=== PATIENT | female | born 1960 | race Two or more races ===

== ENCOUNTER 2021-06-26 23:50 | Inpatient (IN) | payer MEDICARE, OTHER ==
[~2021-06-26] VITALS: Ht 167.6 cm; Wt 72.6 kg
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
[2021-06-27 00:22] LABS: BASOPHILS # (AUTO) 0.1 K/uL (0.0-0.2); BASOPHILS % (AUTO) 0.9 % (0.0-2.0); EOSINOPHILS % (AUTO) 3.3 % (0.0-6.0); HEMATOCRIT 41 % (33-45); HEMOGLOBIN 14.2 g/dL (11.5-14.8); LYMPHOCYTES # (AUTO) 1.9 K/uL (0.8-4.8); LYMPHOCYTES % (AUTO) 21.2 % (20.0-44.0); MEAN CORPUSCULAR HGB CONC 34 g/dl (31.0-36.0); MEAN CORPUSCULAR VOLUME 88 fL (82-100); MONOCYTES % (AUTO) 11.1 % (2.0-12.0); NEUTROPHILS # (AUTO) 5.6 K/uL (1.8-8.9); NEUTROPHILS % (AUTO) 63.5 % (43.0-81.0); PLATELET COUNT (AUTO) 353 K/uL (150-450); RED BLOOD CELL COUNT(AUTO) 4.67 MIL/uL (4.0-5.2); WHITE BLOOD COUNT (AUTO) 8.8 K/uL (4.3-11.0)
[2021-06-27] MEDS ORDERED: LORAZEPAM INJ 2 MG/ML VIAL ONE (00:27)
[2021-06-27] MEDS ORDERED: LORAZEPAM INJ 2 MG/ML VIAL IV ONE (00:30)
[2021-06-27 00:35] LABS: ALANINE AMINOTRANSFERASE 28 U/L (12-78); ALCOHOL, BLOOD < 3 mg/dL (0-0); ALKALINE PHOSPHATASE 124 U/L (46-116); ASPARTATE AMINOTRANSFERASE 24 U/L (15-37); BILIRUBIN,DIRECT 0.1 mg/dL (0.0-0.2); BILIRUBIN,TOTAL 0.4 mg/dL (0.2-1.0); CALCIUM, SERUM 9.6 mg/dL (8.5-10.1); CARBON DIOXIDE 25 mmol/L (21-32); CHLORIDE 102 mmol/L (98-107); CREATININE 2.3 mg/dL (0.6-1.3); GLUCOSE 113 mg/dL (74-106); SODIUM SERUM 140 mmol/L (136-145); TOTAL PROTEIN, SERUM 7.8 g/dL (6.4-8.2); UREA NITROGEN, BLOOD 28 mg/dL (7-18)
[2021-06-27 00:38] LABS: ACETAMINOPHEN 0 ug/ml (10-30); POTASSIUM 2.6 mmol/L (3.5-5.1)
--- NOTE | 2021-06-27 00:39 | NUR ---
BROUGHT TO CT
[2021-06-27 00:56] LABS: SERUM AMMONIA 20 umol/L (11-32)
[2021-06-27 00:58] LABS: THYROID STIMULATING HORMONE 0.426 uIU/mL (0.358-3.74)
[2021-06-27] MEDS ORDERED: POTASSIUM CHLORIDE 20 MEQ TAB.PRT.SR PO ONE ×2 (01:00→01:14)
--- NOTE | 2021-06-27 01:05 | NUR ---
URINE COLLECTED AND SENT TO LAB
[2021-06-27 01:18] LABS: BILIRUBIN,URINE SMALL (NEGATIVE); COLOR,URINE YELLOW (YELLOW); LEUKOCYTE ESTERASE ,URINE Negative (NEGATIVE); NITRITE, URINE Negative (NEGATIVE); PH,URINE 5.5 (5.0-8.0); PROTEIN,URINE Negative (NEGATIVE); UGLUCOSE Negative (NEGATIVE); UROBILINOGEN,URINE 0.2 EU/dL (0.2)
[2021-06-27] MEDS ORDERED: IV NS 0.9% 1,000 ML IV ONE ×2 (03:00)
[2021-06-27 05:11] LABS: CREATININE 1.5 mg/dL (0.6-1.3)
[2021-06-27 05:28] LABS: CALCIUM, SERUM 8.4 mg/dL (8.5-10.1)
--- NOTE | 2021-06-27 06:02 | NUR ---
CALLED [facility] FOR EVALUATION OF BED 12. NO ANSWER, VOICEMAIL WAS LEFT FOR HER.
--- NOTE | 2021-06-27 09:13 | NUR ---
MOVE SHEET SUBMITTED.
[2021-06-27] MEDS ORDERED: HYDR25TA4 PO (09:45)
[2021-06-27] MEDS ORDERED: CHOL100062 PO (09:45)
[2021-06-27] MEDS ORDERED: AMLO-213 PO (09:45)
[2021-06-27] MEDS ORDERED: HYDR-3980 PO (09:45)
--- NOTE | 2021-06-27 09:56 | NUR ---
REPORT GIVEN TO SONIA. PT AWAITING TRANSFER TO FLOOR.
--- NOTE | 2021-06-27 10:16 | NUR ---
wheeled patient via gurney accompanied by EMT in no distress. RN assigned to patient at bedside to assume care.
[2021-06-27] MEDS ORDERED: LORAZEPAM 0.5 MG TABLET PO PRN (10:30)
[2021-06-27] MEDS ORDERED: MAG HYDROX/AL HYDROX/SIMETH 30 ML UDC PO PRN (10:30)
[2021-06-27] MEDS ORDERED: BLOOD SUGAR DIAGNOSTIC 1 EACH STRIP IN ONE ×2 (10:30→11:00)
[2021-06-27] MEDS ORDERED: TEMAZEPAM 7.5 MG CAPSULE PO PRN (10:30)
[2021-06-27] MEDS ORDERED: MAGNESIUM HYDROXIDE 30 ML UDC PO PRN ×2 (10:30→11:00)
[2021-06-27] MEDS ORDERED: ACETAMINOPHEN 325 MG TABLET PO PRN ×2 (10:30→11:00)
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
[2021-06-27] MEDS ORDERED: OLANZAPINE 10 MG VIAL IM STA (10:53)
[2021-06-27] MEDS ORDERED: LORAZEPAM INJ 2 MG/ML VIAL IM STA (10:53)
--- NOTE | 2021-06-27 11:22 | NUR ---
RN-CO: ADMITTED PATIENT,FROM [facility] ED. SHE IS UNCOOPERATIVE, DISRUPTIVE IN THE UNIT, YELLING AT THE STAFF AND REFUSED TO SURRENDER HER CONTRABAND. THEN SHE INSISTED TO GET THE WIRELESS PHONE TO CALL 911. SHE WAS CALLING STAFF NAMES AND ARGUMENTATIVE. PT IS NON REDIRECTABLE, REFUSED ATIVAN PO. PATIENT WAS POSTURING TO ONE OF THE STAFF. CALLED DR OVALLE AND ORDERED ATIVAN 1 MG IM AND ZYPREXA 5 MG IM STAT, NOTED AND CARRIED OUT. WE WILL CONTINUE TO MONITOR.
--- NOTE | 2021-06-27 14:16 | NUR ---
RNMaria LuisaCO: PT WAS ADMITTED BY DR OVALLE. H&P DICTATED.
[2021-06-27] MEDS: QUETIAPINE FUMARATE 25 MG TABLET PO SCH ×2 (14:30→16:49)
[2021-06-27] MEDS: DIVALPROEX SODIUM 125 MG CAP.SPRINK PO SCH ×2 (14:30→16:49)
--- NOTE | 2021-06-27 14:34 | NUR ---
RN-CO: PT IS ASLEEP RESPIRATION EVEN AND UNLABORED.
[2021-06-27 16:00] VITALS: BP 106/66
[2021-06-27] MEDS: AMLODIPINE BESYLATE 10 MG TABLET PO SCH (18:00)
[2021-06-27 20:00] VITALS: BP 95/59
[2021-06-27 23:00] VITALS: BP 115/69
[2021-06-28] MEDS: clonazePAM 0.5 MG TABLET PO PRN (04:03)
--- NOTE | 2021-06-28 04:06 | NUR ---
RN NOTES: ANXIETY PT. C/O FEELING ANXIOUS ,PARANOID , CRYING , KLONOPIN 0.5 MG PO PRN GIVEN PER PT. REQUEST, WILL CONTINUE TO MONITOR.
[2021-06-28 08:52] LABS: ALBUMIN 3.1 g/dL (3.4-5.0); BILIRUBIN,TOTAL 0.5 mg/dL (0.2-1.0); CALCIUM, SERUM 8.8 mg/dL (8.5-10.1); CREATININE 0.9 mg/dL (0.6-1.3); TOTAL PROTEIN, SERUM 6.6 g/dL (6.4-8.2)
[2021-06-28 08:57] LABS: CHOLESTEROL 175 mg/dL (<200); HDL CHOLESTEROL 51 mg/dL (40-60); LDL 95 mg/dL (0-99); TRIGLYCERIDES 70 mg/dL (30-150)
[2021-06-28] MEDS: CHOLECALCIFEROL 1,000 UNIT TABLET (VIT D3) PO SCH (09:00)
[2021-06-28] MEDS: QUETIAPINE FUMARATE 25 MG TABLET PO SCH ×2 (09:00→17:34)
[2021-06-28] MEDS: DIVALPROEX SODIUM 125 MG CAP.SPRINK PO SCH ×3 (09:00→17:35)
[2021-06-28] MEDS: HYDROCHLOROTHIAZIDE 25 MG TABLET PO SCH (09:00)
[2021-06-28 09:07] LABS: POTASSIUM 2.7 mmol/L (3.5-5.1)
[2021-06-28 09:14] VITALS: BP 105/73
--- NOTE | 2021-06-28 09:15 | NUR ---
RECEIVED CRITICAL LAB RESULTS. K 2.7. DR OMER CALLED. AWAITING CALL BACK.
--- NOTE | 2021-06-28 09:35 | NUR ---
DR OMER CALLED AGAIN REGARDING PT'S CRITICAL LAB.
--- NOTE | 2021-06-28 09:55 | NUR ---
DR OMER ORDERED K DUR 80MEQ STAT. BMP@ 1500 AND BMP FOR 06/29/2021 AM. ORDERS PLACED.
[2021-06-28] MEDS: POTASSIUM CHLORIDE 20 MEQ TAB.PRT.SR PO SCH ×4 (10:22→21:02)
[2021-06-28] MEDS: HYDROCODONE/APAP 10/325MG TABLET PO PRN (11:15)
--- NOTE | 2021-06-28 11:17 | NUR ---
RN NOTE: PT COMPLAINS OF BACK PAIN. NORCO PRN GIVEN FOR PAIN. WILL CONTINUE TO MONITOR
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
--- NOTE | 2021-06-28 16:06 | NUR ---
Family contact: OLIMPIA contacted pts son Jean Carlos ([phone]) and informed him that pt will be discharged home and there is no discharge date yet. Jean Carlos inquired if pt can go to a higher level of care. OLIMPIA informed Jean Carlos that the SW will encourage pt to go to a SNF but she has the right to refuse and go home. Jean Carlos confirmed this information. OLIMPIA will follow up with Jean Carlos about pts treatment.
--- NOTE | 2021-06-28 16:09 | NUR ---
Initial discharge plan: Pt is currently living in an apartment with her son [place] on [address] [place] [address] [address] [place], [place] [address]; [phone]. Per pt, she would like to return home upon discharge. SW will work with the pt and the MD regarding appropriate discharge planning. SW will form a safe and proper discharge.
[2021-06-28 16:11] LABS: CALCIUM, SERUM 9.1 mg/dL (8.5-10.1); POTASSIUM 3.1 mmol/L (3.5-5.1)
[2021-06-28 16:36] VITALS: BP 128/71
--- NOTE | 2021-06-28 16:37 | NUR ---
DR OMER INFORMED OF K LAB RESULTS OF 3.1. NEW ORDER OF 80 MEQ K DUR AT THIS TIME. ALSO, DR OMER WAS INFORMED OF PT'S COMPLAINS OF PAIN. STATED TO TELL PT THAT HE WAS INFORMED. NO NEW ORDERS.
[2021-06-28] MEDS ORDERED: POTASSIUM CHLORIDE 20 MEQ TAB.PRT.SR PO SCH (17:07)
[2021-06-28] MEDS: AMLODIPINE BESYLATE 10 MG TABLET PO SCH (17:35)
[2021-06-28 20:40] VITALS: BP 104/54
[2021-06-29 07:13] LABS: CALCIUM, SERUM 9.2 mg/dL (8.5-10.1); CREATININE 0.8 mg/dL (0.6-1.3); POTASSIUM 4.1 mmol/L (3.5-5.1)
[2021-06-29 08:00] VITALS: BP 110/77
[2021-06-29] MEDS: HYDROCHLOROTHIAZIDE 25 MG TABLET PO SCH (08:16)
[2021-06-29] MEDS: CHOLECALCIFEROL 1,000 UNIT TABLET (VIT D3) PO SCH (08:16)
[2021-06-29] MEDS: DIVALPROEX SODIUM 125 MG CAP.SPRINK PO SCH ×3 (08:16→16:41)
[2021-06-29] MEDS: QUETIAPINE FUMARATE 25 MG TABLET PO SCH ×2 (08:16→16:41)
[2021-06-29 16:00] VITALS: BP 119/82
[2021-06-29] MEDS: AMLODIPINE BESYLATE 10 MG TABLET PO SCH (17:02)
[2021-06-29] MEDS: HYDROCODONE/APAP 10/325MG TABLET PO PRN (17:05)
--- NOTE | 2021-06-29 17:06 | NUR ---
RN-CO: NORCO 1 TAB PO GIVEN FOR C/O 07/11 BACK PAIN.
[2021-06-29 20:00] VITALS: BP 117/92
[2021-06-29] MEDS: TEMAZEPAM 7.5 MG CAPSULE PO PRN (21:04)
[2021-06-30] MEDS: HYDROCODONE/APAP 10/325MG TABLET PO PRN (06:40)
[2021-06-30 08:00] VITALS: BP 119/82
[2021-06-30] MEDS: CHOLECALCIFEROL 1,000 UNIT TABLET (VIT D3) PO SCH (08:25)
[2021-06-30] MEDS: QUETIAPINE FUMARATE 25 MG TABLET PO SCH ×2 (08:25→17:17)
[2021-06-30] MEDS: HYDROCHLOROTHIAZIDE 25 MG TABLET PO SCH (08:25)
[2021-06-30] MEDS: DIVALPROEX SODIUM 125 MG CAP.SPRINK PO SCH ×3 (08:25→17:17)
[2021-06-30 17:15] VITALS: BP 136/89
[2021-06-30] MEDS: AMLODIPINE BESYLATE 10 MG TABLET PO SCH (17:17)
[2021-06-30] MEDS: clonazePAM 0.5 MG TABLET PO PRN (19:37)
--- NOTE | 2021-06-30 19:39 | NUR ---
RN NOTES: ANXIETY PT. C/O FEELING ANXIOUS ,PARANOID , CRYING ,RESTLESS KLONOPIN 0.5 MG PO PRN GIVEN PER PT. REQUEST, WILL CONTINUE TO MONITOR.
[2021-06-30 20:02] VITALS: BP 119/77
[2021-07-01 08:00] VITALS: BP 111/75
[2021-07-01] MEDS: QUETIAPINE FUMARATE 25 MG TABLET PO SCH ×2 (08:03→17:12)
[2021-07-01] MEDS: DIVALPROEX SODIUM 125 MG CAP.SPRINK PO SCH ×3 (08:03→17:12)
[2021-07-01] MEDS: CHOLECALCIFEROL 1,000 UNIT TABLET (VIT D3) PO SCH (08:03)
[2021-07-01] MEDS: HYDROCODONE/APAP 10/325MG TABLET PO PRN ×2 (08:04→15:06)
[2021-07-01] MEDS: HYDROCHLOROTHIAZIDE 25 MG TABLET PO SCH (08:04)
[2021-07-01 16:12] VITALS: BP 107/74
[2021-07-01 17:00] VITALS: BP 112/72
[2021-07-01] MEDS: AMLODIPINE BESYLATE 10 MG TABLET PO SCH (17:15)
[2021-07-01 20:00] VITALS: BP 100/66
[2021-07-02] MEDS: TEMAZEPAM 7.5 MG CAPSULE PO PRN ×2 (01:23→21:50)
[2021-07-02 08:00] VITALS: BP 122/77
[2021-07-02] MEDS: CHOLECALCIFEROL 1,000 UNIT TABLET (VIT D3) PO SCH (09:46)
[2021-07-02] MEDS: DIVALPROEX SODIUM 125 MG CAP.SPRINK PO SCH ×3 (09:47→17:20)
[2021-07-02] MEDS: QUETIAPINE FUMARATE 25 MG TABLET PO SCH ×2 (09:47→17:19)
[2021-07-02] MEDS: HYDROCHLOROTHIAZIDE 25 MG TABLET PO SCH (09:47)
[2021-07-02] MEDS: HYDROCODONE/APAP 10/325MG TABLET PO PRN ×2 (11:00→19:48)
--- NOTE | 2021-07-02 11:00 | NUR ---
Patient c/o back pain 08/11 ,medicated with [place] 10/325 mg will continue to monitor .
[2021-07-02 16:00] VITALS: BP 123/80
[2021-07-02] MEDS: MAG HYDROX/AL HYDROX/SIMETH 30 ML UDC PO PRN ×2 (17:19→17:21)
[2021-07-02] MEDS: AMLODIPINE BESYLATE 10 MG TABLET PO SCH (17:20)
--- NOTE | 2021-07-02 17:23 | NUR ---
PATIENT C/O ACID REFLUX MEDICATED WITH MAALOX 30ML WILL CONTINUE TO MONITOR .
--- NOTE | 2021-07-02 19:48 | NUR ---
GPS RN NOTE PT C/O PAIN IN LOWER BACK 05/11 , NORCO 1 TAB PO GIVEN. CONTINUE TO MONITOR.
[2021-07-02 20:25] VITALS: BP 113/80
--- NOTE | 2021-07-02 20:48 | NUR ---
GPS RN NOTE PAIN SUBSIDED 01/11. PT FALLING ASLEEP.
--- NOTE | 2021-07-02 22:00 | NUR ---
GPS RN NOTE PT ASKING FOR SLEEPING PILL, RESTORIL 15 MG FOR INSOMNIA GIVEN PO. WILL CONTINUE TO MONITOR
--- NOTE | 2021-07-02 23:00 | NUR ---
GPS RN NOTE PT FALL BACK TO SLEEP, NO DISTRESS NOTED.
[2021-07-03] MEDS: HYDROCODONE/APAP 10/325MG TABLET PO PRN ×2 (06:29→12:31)
--- NOTE | 2021-07-03 06:29 | NUR ---
GPS RN NOTE PT WOKE UP C/O BACK PAIN 06/10, NORCO 1 TAB PO GIVEN.
[2021-07-03 08:00] VITALS: BP 112/74
[2021-07-03] MEDS: HYDROCHLOROTHIAZIDE 25 MG TABLET PO SCH (08:31)
[2021-07-03] MEDS: QUETIAPINE FUMARATE 25 MG TABLET PO SCH ×2 (08:35→17:00)
[2021-07-03] MEDS: CHOLECALCIFEROL 1,000 UNIT TABLET (VIT D3) PO SCH (08:35)
[2021-07-03] MEDS: DIVALPROEX SODIUM 125 MG CAP.SPRINK PO SCH ×3 (08:36→17:00)
--- NOTE | 2021-07-03 12:27 | NUR ---
Probable cause hearing: Pt.'s 5250 hold was upheld on the grounds of gravely disabled.
[2021-07-03 16:00] VITALS: BP 115/76
[2021-07-03] MEDS: MAG HYDROX/AL HYDROX/SIMETH 30 ML UDC PO PRN (16:22)
--- NOTE | 2021-07-03 16:24 | NUR ---
PT COMPLAINED OF INDIGESTION. MAALOX GIVEN.
[2021-07-03] MEDS: AMLODIPINE BESYLATE 10 MG TABLET PO SCH (17:00)
[2021-07-03 20:00] VITALS: BP 104/66
[2021-07-04] MEDS: HYDROCODONE/APAP 10/325MG TABLET PO PRN ×2 (04:21→10:29)
--- NOTE | 2021-07-04 04:24 | NUR ---
GPS RN NOTES: PATIENT C/O LOWER BACK PAIN, NORCO 10-325MG 1 TAB GIVEN PO PRN ORDERED AT 0421. PATENT IS CURRENTLY LAYING ON BED. WILL CONTINUE TO MONITOR.
--- NOTE | 2021-07-04 06:53 | NUR ---
GPS RN CLOSING NOTE: PATIENT IS AWAKE A/O, AMBULATING IN HALLWAY. PATIENT SLEPT 7HR THIS SHIFT. NO S/S OF DISTRESS, RESPIRATION EVEN AND UNLABORED WITH EQUAL RISE AND FALL OF THE CHEST, ON ROOM AIR. BED IN LOWEST POSITION AND LOCKED, SIDE RAILS UP X2. ALL PATIENT CARE NEEDS HAVE BEEN MET AT THIS TIME. WILL CONTINUE TO MONITOR AND ENDORSE TO AM SHIFT.
[2021-07-04 08:00] VITALS: BP 110/70
[2021-07-04] MEDS: DIVALPROEX SODIUM 125 MG CAP.SPRINK PO SCH ×3 (08:26→16:10)
[2021-07-04] MEDS: HYDROCHLOROTHIAZIDE 25 MG TABLET PO SCH (08:26)
[2021-07-04] MEDS: CHOLECALCIFEROL 1,000 UNIT TABLET (VIT D3) PO SCH (08:27)
[2021-07-04] MEDS: QUETIAPINE FUMARATE 25 MG TABLET PO SCH ×2 (08:27→16:10)
--- NOTE | 2021-07-04 09:00 | NUR ---
RN NOTE- PT LABILE AT TIMES, LOUD INTRUSIVE, MED COMPLIANT BOUNDARIES SET W PT , MUCH EASIER TO INTERACT WITH. PO INTAKE GOOD, UNKEPT BUT CLEAN, DENIES SI HI AH VH, PARANOID
--- NOTE | 2021-07-04 10:36 | NUR ---
D/C Planning: SW discussed D/C plan with the patient at her bedside. Patient was alert and oriented x3. Patient presented anxious. Patient stated "I want to return home." SW asked the patient if she lives alone or with others. Patient reported that she is currently living with her son. Patient did not express any concern regarding living arrangement w/patient's son. SW discussed transportation with the patient. Patient stated that her friend Deborah, ([phone]) will provide transportation or the patient is able to arrange a taxi/use public transportation.
[2021-07-04] MEDS: MAG HYDROX/AL HYDROX/SIMETH 30 ML UDC PO PRN (14:26)
--- NOTE | 2021-07-04 14:26 | NUR ---
RN NOTE- PT C/O DYSPEPSIA. MAALOX 30 CC GIVEN
[2021-07-04 16:00] VITALS: BP 112/67
[2021-07-04] MEDS: AMLODIPINE BESYLATE 10 MG TABLET PO SCH (18:00)
[2021-07-04 20:00] VITALS: BP 110/79
[2021-07-04] MEDS: clonazePAM 0.5 MG TABLET PO PRN (20:06)
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
[2021-07-05] MEDS: HYDROCODONE/APAP 10/325MG TABLET PO PRN ×3 (05:19→20:00)
--- NOTE | 2021-07-05 05:34 | NUR ---
RN NOTES: PATIENT C/O GENERALIZED PAIN 8/10, NORCO 10-325MG 1 TAB GIVEN PO PRN ORDERED, WILL CONTINUE TO MONITOR.
[2021-07-05 08:00] VITALS: BP 109/75
[2021-07-05] MEDS: HYDROCHLOROTHIAZIDE 25 MG TABLET PO SCH (09:00)
[2021-07-05] MEDS: DIVALPROEX SODIUM 125 MG CAP.SPRINK PO SCH ×3 (09:02→17:03)
[2021-07-05] MEDS: CHOLECALCIFEROL 1,000 UNIT TABLET (VIT D3) PO SCH (09:02)
[2021-07-05] MEDS: QUETIAPINE FUMARATE 25 MG TABLET PO SCH ×2 (09:03→17:03)
--- NOTE | 2021-07-05 10:50 | NUR ---
GPS RN NOTES: PATIENT C/O LOWER BACK PAIN, NORCO 10-325MG 1 TAB GIVEN PO PRN ORDERED . PATENT IS CURRENTLY LAYING ON BED. WILL CONTINUE TO MONITOR.
[2021-07-05 16:00] VITALS: BP 98/62
[2021-07-05] MEDS: AMLODIPINE BESYLATE 10 MG TABLET PO SCH (17:03)
[2021-07-05 19:54] VITALS: BP 122/75
--- NOTE | 2021-07-05 20:00 | NUR ---
RN NOTE: PAIN PT C/O 07/11 LOWER BACK PAIN. REQUESTING PAIN MEDICATION. MEDICATED WITH NORCO 10/325 PO PRN. WILL CONT TO MONITOR EFFECTIVENESS OF PRN MEDICATION.
[2021-07-06] MEDS: TEMAZEPAM 7.5 MG CAPSULE PO PRN (02:38)
--- NOTE | 2021-07-06 02:38 | NUR ---
GPS-RN NOTES: INSOMNIA PATIENT C/O INABILITY TO SLEEP. PRN RESTORIL 15MG PO GIVEN ORDERED. WILL CONTINUE TO MONITOR.
[2021-07-06] MEDS: HYDROCODONE/APAP 10/325MG TABLET PO PRN (06:42)
--- NOTE | 2021-07-06 06:42 | NUR ---
GPS RN NOTES: LOWER BACK PAIN PATIENT C/O LOWER BACK PAIN, NORCO 10-325MG 1 TAB GIVEN PO PRN ORDERED . PATENT IS CURRENTLY LAYING ON BED. WILL CONTINUE TO REASSESS.
[2021-07-06 08:00] VITALS: BP 110/82
[2021-07-06] MEDS: DIVALPROEX SODIUM 125 MG CAP.SPRINK PO SCH ×3 (08:14→16:36)
[2021-07-06] MEDS: QUETIAPINE FUMARATE 25 MG TABLET PO SCH ×2 (08:15→16:36)
[2021-07-06] MEDS: CHOLECALCIFEROL 1,000 UNIT TABLET (VIT D3) PO SCH (08:15)
[2021-07-06] MEDS: HYDROCHLOROTHIAZIDE 25 MG TABLET PO SCH (08:18)
[2021-07-06] MEDS: MAG HYDROX/AL HYDROX/SIMETH 30 ML UDC PO PRN (15:31)
[2021-07-06 16:00] VITALS: BP 115/72
[2021-07-06] MEDS: AMLODIPINE BESYLATE 10 MG TABLET PO SCH (17:49)
[2021-07-06 19:54] VITALS: BP 110/62
[2021-07-06 19:55] VITALS: BP 110/62
[2021-07-07 00:06] VITALS: BP 95/65
[2021-07-07 08:00] VITALS: BP 115/75
--- NOTE | 2021-07-07 08:00 | NUR ---
RN-NOTES RECEIVED T.O ORDER FROM /COVERING FOR DR. OVALLE TODAY TO DISCHARGE PATIENT AND DISCONTINUE HOLD.
[2021-07-07] MEDS: CHOLECALCIFEROL 1,000 UNIT TABLET (VIT D3) PO SCH (09:03)
[2021-07-07] MEDS: DIVALPROEX SODIUM 125 MG CAP.SPRINK PO SCH ×2 (09:03→13:17)
[2021-07-07 09:04] VITALS: BP 115/75
[2021-07-07] MEDS: HYDROCHLOROTHIAZIDE 25 MG TABLET PO SCH (09:04)
[2021-07-07] MEDS: QUETIAPINE FUMARATE 25 MG TABLET PO SCH (09:04)
[2021-07-07] MEDS: HYDROCODONE/APAP 10/325MG TABLET PO PRN (09:05)
--- NOTE | 2021-07-07 13:48 | NUR ---
RN-DISCHARGE NOTES. RECEIVED T.O DISCHARGE ORDER FROM DR. MATHEWS/COVERING FOR DR. OVALLE (PSYCHIATRIST) TODAY WITH ORDERS.DR. SANCHEZ ( COOLER DELIVERER) ALSO AWARE WITH ORDERS. PATIENT DID NOT VERBALIZE SI/HI,DENIES VISUAL/AUDITORY HALLUCINATIONS AT THE TIME OF DISCHARGE.ALL DISCHARGED MEDICATIONS WAS REVIEWED WITH THE PATIENT WITH UNDERSTANDING. INSTRUCTED PATIENT TO FOLLOW UP WITH COOLER DELIVERER AND PSYCHIATRIST IN A WEEK OR NEEDED. INSTRUCTED PATIENT TO CALL 911 IN CASE OF EMERGENCY OR GO TO THE NEAREST EMERGENCY ROOM .PATIENT LEFT THE UNIT IN STABLE CONDITION A/O X4,AMBULATORY STEADY GAIT. ALL BELONGINGS WAS GIVEN BACK TO THE PATIENT.PATIENT WAS ACCOMPANIED IN THE LOBBY FOR SAFETY, SPA MANAGER/ESTHETICIAN BY FRIEND MIKE ([phone]) TOGETHER WITH ALYSSA HALL (WHO SIGN THE CONTINUING CARE ADVISEMENT) VIA PRIVATE CAR.
--- NOTE | 2021-07-07 14:08 | NUR ---
Discharge Note: Pt. was discharged to her prior living arrangement at home [[address] [facility] [address]; [phone]] with son, Jean Carlos [phone]. Pt. was provided transportation by her friend, Deborah [phone] and friend, Darrell Silva. Jean Carlos and Deborah were notified of pt.s discharge. Upon D/C the pt.s mood is euthymic. Pt. remained calm & cooperative. Pt. denies SI/HI and denies hallucinations. Pt. will be under the care of a psychiatrist at [facility] [[address]. [facility] [address]; [phone]]. Pt. will be seen by mold maker plaster at [facility] [[address] [facility] [address];[phone]].
== END 2021-07-07 13:45 | disposition home or self-care (01) | DRG 885 ==
LOC: ER 23:52 → GPS 06-27 09:44
PROVIDERS: ADMIT Psychiatry & Neurology Psychiatry; ATTEND Internal Medicine
DX: F39 Unspecified mood [affective] disorder (principal); F01.50 Vascular dementia, unspecified severity, without behavioral disturbance, psychotic disturbance, mood disturbance, and anxiety; N17.0 Acute kidney failure with tubular necrosis; E44.1 Mild protein-calorie malnutrition; F29 Unspecified psychosis not due to a substance or known physiological condition; I10 Essential (primary) hypertension; E87.6 Hypokalemia; F19.10 Other psychoactive substance abuse, uncomplicated; Z73.6 Limitation of activities due to disability; R53.1 Weakness; R27.8 Other lack of coordination; Z91.81 History of falling; F41.9 Anxiety disorder, unspecified; F32.9 Major depressive disorder, single episode, unspecified; F03.90 Unspecified dementia, unspecified severity, without behavioral disturbance, psychotic disturbance, mood disturbance, and anxiety
CPT/HCPCS: 36415; 70450-TC; 80048-TC; 80053-TC; 80061-TC; 80076-TC; 82140-TC; 84443-TC; 85025-TC; 87081-TC; C9803; G0480; J2060; J3490